=== PATIENT | male | born 1995 ===

== ENCOUNTER 2017-04-25 13:15 | Emergency (ER) | payer MEDICAID ==
[2017-04-25 13:28] VITALS: BP 130/60; PULSE 64; RESP 20; TEMP 98; O2SAT 99
--- NOTE | 2017-04-25 13:39 | ED PDOC ---
Lower Extremity Pain/Injury Time Seen by Provider: 04/25/17 13:28 Chief Complaint (Nursing): Lower Extremity Problem/Injury Chief Complaint (Provider): Right knee pain History Per: Patient History/Exam Limitations: no limitations Onset/Duration Of Symptoms: Persistent (2 weeks) Current Symptoms Are (Timing): Still Present Severity: Moderate Additional Complaint(s): Walter Corona is a 22 y/o male presenting to the ER on 04/25/2017 with complaints of right knee pain w/ swelling for two weeks. Patient reports being evaluated at [facility] two weeks ago for the same presentation two days after he sustained the injury by falling off a step, forcing him to twist his knee. After the injury, he developed immediate pain, prompting him to seek evaluation at [facility]. After having xrays performed, he was discharged with advisement to follow up with an orthopedic assistant, which he has failed to do. Patient also states he has not been using his brace or crutches at home. Denies new trauma, numbness, tingling, calf pain. Past Medical History Reviewed: Historical Data, Nursing Documentation, Vital Signs Vital Signs: Last Vital Signs Temp 98 F 04/25/17 13:24 Pulse 64 04/25/17 13:24 Resp 20 04/25/17 13:24 BP 130/60 04/25/17 13:24 Pulse Ox 99 04/25/17 13:24 - Medical History PMH: No Chronic Diseases - Surgical History Surgical History: No Surg Hx - Family History Family History: States: Unknown Family Hx - Social History Current smoker - smoking cessation education provided: No Alcohol: None Drugs: Denies - Immunization History Hx Tetanus Toxoid Vaccination: Yes Hx Influenza Vaccination: Yes Hx Pneumococcal Vaccination: No - Home Medications Home Medications: Ambulatory Orders Medication Instructions Recorded Ibuprofen [Motrin] 600 mg PO TID #30 tab 04/16/17 Naproxen [Naprosyn] 500 mg PO BID PRN #30 tab 04/25/17 - Allergies Allergies/Adverse Reactions: Allergies Allergy/AdvReac Type Severity Reaction Status Date / Time No Known Allergies Allergy Verified 04/25/17 13:24 Review of Systems ROS Statement: Except As Marked, All Systems Reviewed And Found Negative Musculoskeletal: Positive for: Leg Pain ((+) right knee pain ) Neurological: Negative for: Weakness, Numbness Physical Exam - Reviewed Nursing Documentation Reviewed: Yes Vital Signs Reviewed: Yes - Physical Exam Appears: Positive for: Non-toxic, No Acute Distress Head Exam: Positive for: ATRAUMATIC, NORMOCEPHALIC Skin: Positive for: Normal Color. Negative for: Rash Eye Exam: Positive for: Normal appearance Neck: Positive for: Normal, Painless ROM, Supple Pulses-Dorsalis Pedis (L): 2+ Pulses-Dorsalis Pedis (R): 2+ Extremity: Positive for: Tenderness ((+) anterior knee tenderness ), Swelling (( +) mild edema ), Other (no joint laxity ). Negative for: Calf Tenderness (no tenderness bilat), Deformity Neurologic/Psych: Positive for: Alert, Oriented. Negative for: Motor/Sensory Deficits - ECG O2 Sat by Pulse Oximetry: 99 Medical Decision Making Medical Decision Makin:28 Initial Impression- 22 y/o male with right knee pain Pt was given Toradol 15 mg IM clinically and will be discharged routinely with rx for Naprosyn. Patient was strongly advised to schedule a follow-up with an orthopedist for a MRI. Return precautions were given if condition persists or worsens. Condition is stable for discharge. Documented by Ashley Schumacher, acting as a scribe for Fazal Cervantes PA-C All medical record entries made by the Scribe were at my direction and personally dictated by me. I have reviewed the chart and agree that the record accurately reflects my personal performance of the history, physical exam, medical decision making, and the department course for this patient. I have also personally directed, reviewed, and agree with the discharge instructions and disposition. Disposition - Clinical Impression Clinical Impression: Knee injury - Patient ED Disposition Is Patient to be Admitted: No - Disposition Referrals: [facility] [Outside] Joshua Ibarra MD [Staff Provider] - Disposition Time: 13:51 Condition: STABLE Additional Instructions: FOLLOW UP WITH AN ORTHOPEDIST FOR FURTHER EVALUATION. Prescriptions: Naproxen [Naprosyn] 500 mg PO BID PRN #30 tab PRN Reason: Pain Instructions: Knee Sprain (ED), Crutch Instructions (ED), Knee Immobilizer (ED) Forms: [facility] ED School/Work Excuse Print Language: [id number]
== END 2017-04-25 13:56 | disposition home or self-care (01) ==
LOC: H.ER 13:15
DX: M25.561 Pain in right knee (principal)